=== PATIENT | female | born 1995 | race Caucasian/White ===

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

== ENCOUNTER 2017-01-03 06:53 | Emergency (ER) | payer MEDICAID ==
[2017-01-03] MEDS ORDERED: ASPIRIN 81 MG TAB.CHEW ONE (07:13)
[2017-01-03] MEDS: ASPIRIN 81 MG TAB.CHEW PO ONE (07:16)
[2017-01-03 07:31] LABS: Hematocrit 35.4 % (37.0-47.0); Mean Cell Volume 87.8 fl (78-100); Mean Corpuscular Hemoglobin 29.8 pg (27-31); Mean Corpuscular Hgb Conc 33.9 g/dl (32-36); Neutrophil # 8.1 K/mm3 (1.3-6.0); Neutrophil % 66.1 % (42-75.0); Platelet Count 310 K/mm3 (150-450); Red Blood Count 4.03 M/mm3 (4.2-5.4); Red Cell Distribution Width 13.1 % (11.5-14.0); White Blood Count 12.3 K/mm3 (4.0-10.5)
--- NOTE | 2017-01-03 07:43 | ERNOTE ---
<Shreyas Willson - Last Filed: 01/03/17 08:10> Chest Pain/Cardiac HPI Date of Service: 01/03/17 Chief Complaint: Chest Pain Time Seen by Provider: 01/03/17 07:41 Source: patient, family Immunizations: IMMUNIZATION HX Immunizations Up to Date Yes History of Influenza Vaccine Yes Hx Pneumococcal Vaccination No Allergies/Adverse Reactions: Allergies No Known Allergies Allergy (Verified 12/14/16 23:19) Home Medications: HOME MEDICATIONS Etonogestrel [Nexplanon] 68 mg SQ DAILY 07/11/15 [Last Taken Unknown] Ibuprofen [Motrin] 600 mg PO Q6H PRN #40 tab 01/01/16 [Last Taken Unknown] Pantoprazole Sodium [Protonix] 40 mg PO DAILY #30 tab 12/15/16 [Last Taken Unknown] Hydrocodone-Acetamin 2.5-108/5 01/03/17 [Last Taken Unknown] Sucralfate [Carafate] 1 gm PO TID PRN #30 tab 01/03/17 [Last Taken Unknown] Narrative: PT C/O OF HAVING "10/10 SUBSTERNAL SHARP CHEST PAIN GOING UP TO HER RIGHT SHOULDER AND ARM , STARTING AT -0600 WHILE SHE WAS LAYING IN BED. SHE WAS SEEN 2-3 WEEKS AGO WITH CHEST PAIN ALSO. SHE SAYS SHE HAD BEEN AWAKE BECAUSE OF TOOTH ACHE FOR WHICH SHE TOOK SOME VICODIN AT ABOUT 0500. SHE DENIES VICODIN EVER CAUSING HER SIDE EFFECT LIKE THIS. SHE SAYS SHE IS USUALLY ON DAILY PRILOSEC BUT DID NOT TAKE ANY THIS A.M. NO HX OF CHEST TRAUMA. NO DIAPHORESIS BUT CLAIMS SHE HAD SOME SOB AND STILL HAS 9-10/10 CHEST PAIN. HER FATHER SAYS THERE IS A PATERNAL FHX OF CAD. Review of Systems - Review of Systems Constitutional: Present: See HPI Respiratory: Present: See HPI, shortness of breath Cardiology: Present: See HPI, chest pain Gastrointestinal/Abdominal: Present: no symptoms reported Musculoskeletal: Present: no symptoms reported Skin: Present: no symptoms reported Neurological: Present: no symptoms reported Psych: Present: no symptoms reported All Other Systems: All systems neg except as marked - Patient's Past Medical History Patient History - Medical: GERD, Obesity, UTI'S Patient History - Cardiac/Respiratory: No pertinent hx Patient History - Cancer: No Hx of Cancer Patient History - Surgical Procedures: T & A Patient History - Other: None LMP (females 10-50): last week LMP (Calendar): 11/30/16 - Family History mom Family History - Medical: History Unknown, Diabetes Type 2, GERD, Other Family History - Cardiac/Respiratory: Hypertension Family History - Cancer: No pertinent family hx dad Family History - Medical: Diabetes Type 2 Family History - Cardiac/Respiratory: Hypertension - Social History Living Situations: parents Abuse History: No History of abuse Psych History: Hx of Anxiety, Hx of Depression Does anyone smoke in the home?: No Smoking Status: Never smoker Have you smoked in the past 12 months: No Alcohol Use: none Drug Use: none - Immunizations Immunizations Up to Date: Yes Hx Pneumococcal Vaccination: No History of Influenza Vaccine: Yes Physical Exam - Physical Exam General Appearance: Present: wd/wn, alert, mild distress, other - LARGE OBESE YOUNG LADY , A & O Respiratory: Present: no respiratory distress, normal breath sounds, no accessory muscle use, lungs clear, chest tenderness - MILD SUBSTERNAL CHEST DISCOMFORT TO PALPATION. Cardiovascular/Chest: Present: regular rate, rhythm, no murmur, normal peripheral pulses Peripheral Pulses: N=norm/S=strong/W=weak/B=bound/A=absent: Dorsalis-pedis (R): Normal, Dorsalis-pedis (L): Normal Extremity Exam: Present: normal inspection, no edema Skin Exam: Present: normal color, warm/dry ED Progress - Vital Signs Vital Signs: Vital Signs 01/03/17 06:56 Temperature 36.6 C Pulse Rate 110 H Respiratory 18 Rate Blood Pressure 117/83 O2 Sat by Pulse 99 Oximetry - Progress/Reassessment Chief Complaint: Chest Pain - Transfer of Care Physician Sign Out: Shreyas Willson Receiving Physician: Salvador Mann Pending Results: Labs, Pain-control Expected Disposition: Discharge Departure - Departure Clinical Impression: Chest pain in adult, Chest pain, atypical Disposition: Home self-care Condition: Stable Additional Instructions: rest. Follow-up with doctor in 3 days for a re-check. Carafate has been given at your request. Return for return of symptoms, fever, if you change your mind about the additional testing we discussed or if your condition worsens or changes in any way. Prescriptions: Sucralfate [Carafate] 1 gm PO TID PRN #30 tab PRN Reason: Indigestion <Salvador Mann - Last Filed: 01/03/17 08:52> Chest Pain/Cardiac HPI Immunizations: IMMUNIZATION HX Immunizations Up to Date Yes History of Influenza Vaccine Yes Hx Pneumococcal Vaccination No ED Progress - Vital Signs Vital Signs: Vital Signs 01/03/17 01/03/17 01/03/17 06:56 08:22 08:23 Temperature 36.6 C Pulse Rate 110 H 74 72 Respiratory 18 17 Rate Blood Pressure 117/83 115/72 O2 Sat by Pulse 99 99 Oximetry - Progress/Reassessment Progress Note-Subjective: 01/03/17 08:50 I took over from Dr Willson at shift change. Awaiting labs reviwed. Nothign to suggest PE, aortic dissection with d-dimer in normal range no CT indicated. I offered her a 4 hour repeat troponin, she declines this. She understands risks and benefits. She relates being Sx rfee at this time. Nothing to suggest PTX or ACS. Family requests carafate which i will give them a script for. Please see Dr Willson's note for full H&P.
[2017-01-03 07:46] LABS: INR 1.03 INR (0.90-1.10); Partial Thrombolplastin Time 25.5 Seconds (24-32); Prothrombin Time (Patient) 10.7 Seconds (9.4-11.4)
[2017-01-03 07:57] LABS: ALT 19 U/L (19-67); AST 14 U/L (0-48); Albumin * 3.6 gm/dl (3.4-5.0); Alkaline Phosphatase * 57 U/L (50-170); Anion Gap 14.6 mmol/L (6.8-13.8); Bilirubin, Total 0.5 mg/dL (0.0-1.1); Blood Urea Nitrogen 20 mg/dL (3-23); Ca. Corrected For Albumin 8.8 mg/dL (8.4-10.2); Calcium * 8.8 mg/dL (7.9-10.9); Carbon Dioxide 22.7 mmol/L (24-32.6); Chloride 106 mmol/L (97-106); Glucose * 112 mg/dL (70-110); Potassium 3.3 mmol/L (3.4-4.6); Sodium 140 mmol/L (132-142); Total Protein 7.9 gm/dL (6.2-8.2); Troponin I Less than 0.017 ng/ml (0.00-0.10)
[2017-01-03] MEDS ORDERED: PANTOPRAZOLE SODIUM 40 MG TABLET.EC ONE (08:04)
[2017-01-03] MEDS: LIDOCAINE HCL 20 ML UDC PO ONE (08:06)
[2017-01-03] MEDS: MAG HYDROX/ALUMINUM HYD/SIMETH 30 ML UDC PO ONE (08:06)
[2017-01-03] MEDS: PANTOPRAZOLE SODIUM 40 MG TABLET.EC PO ONE (08:06)
[2017-01-03 08:23] VITALS: BP 115/72
--- OUTSIDE RECORDS SUMMARY | 2017-01-03 09:03 | XMS REPORT | Continuity of Care Document ---
:1995 Author Organization [employer] Address Unavailable [place] [id number] Care Team Providers Name Role Phone Unavailable Primary Care Provider Unavailable Source Comments This disclosure is being made pursuant to the [employer] program and maynot contain all information available regarding this patient.[employer] Active Allergies and Adverse Reactions Not on [...]
== END 2017-01-03 09:00 | disposition home or self-care (01) ==
LOC: ER 06:53
DX: R07.89 Other chest pain (principal)

== ENCOUNTER 2017-08-09 17:30 | Emergency (ER) | payer SELFPAY ==
[2017-08-09] MEDS ORDERED: predniSONE 20 MG TABLET PO ONE (17:48)
--- NOTE | 2017-08-09 17:50 | ERNOTE ---
ENT HPI Presenting Symptoms: other - sore throat Time Seen by Provider: 08/09/17 17:42 Source: patient Exam Limitations: no limitations - Immun/Allergies/Home Medications Immunizations: IMMUNIZATION HX Immunizations Up to Date Yes History of Influenza Vaccine No Hx Pneumococcal Vaccination No Allergies/Adverse Reactions: Allergies Allergy/AdvReac Type Severity Reaction Status Date / Time No Known Allergies Allergy Verified 12/14/16 23:19 Home Medications: HOME MEDICATIONS Ibuprofen [Motrin] 600 mg PO Q6H PRN #40 tab 01/01/16 [Last Taken Unknown] Amoxicillin 875 mg PO BID #20 tablet 08/09/17 [Last Taken Unknown] - History of Present Illness Narrative: Patient states that she developed a sore throat 2 days ago this getting mildly progressively worse and she reports some difficulty with swallowing. Severity: Present: mild ENT Location: Present: throat Prearrival Treatment: Present: no prearrival treatment Modifying Factors - Improves: Reports: nothing Modifying Factors - Worsens: Reports: nothing Associated Symptoms - ENT: Reports: denies symptoms Review of Systems - Review of Systems Constitutional: Present: See HPI EYE: Present: no symptoms reported ENT: Present: sore throat Respiratory: Present: no symptoms reported Cardiology: Present: no symptoms reported Gastrointestinal/Abdominal: Present: no symptoms reported Genitourinary: Present: no symptoms reported Musculoskeletal: Present: no symptoms reported Skin: Present: no symptoms reported Neurological: Present: no symptoms reported Endocrine: Present: no symptoms reported Hematologic/Lymphatic: Present: no symptoms reported Psych: Present: no symptoms reported - Patient's Past Medical History Patient History - Medical: GERD, Obesity, UTI'S Patient History - Cardiac/Respiratory: No pertinent hx Patient History - Cancer: No Hx of Cancer Patient History - Surgical Procedures: T & A Patient History - Other: None LMP (females 10-50): last week - Family History mom Family History - Medical: History Unknown, Diabetes Type 2, GERD, Other Family History - Cardiac/Respiratory: Hypertension Family History - Cancer: No pertinent family hx dad Family History - Medical: Diabetes Type 2 Family History - Cardiac/Respiratory: Hypertension - Social History Living Situations: alone Abuse History: No History of abuse Psych History: Hx of Anxiety, Hx of Depression Smoking Status: Never smoker Have you smoked in the past 12 months: No Do you dip or chew tobacco: No Alcohol Use: heavy Drug Use: none - Immunizations Immunizations Up to Date: Yes Hx Pneumococcal Vaccination: No History of Influenza Vaccine: No Physical Exam - Physical Exam General Appearance: Present: wd/wn, alert, mild distress Head Exam: Present: normal inspection, no evidence of injury Eye Exam: Normal inspection: bilateral, PERRL: bilateral Ears, Nose, Throat: Present: pharyngeal erythema Neck: Present: normal inspection, nontender Respiratory: Present: no respiratory distress, normal breath sounds, no accessory muscle use, chest nontender, lungs clear Cardiovascular/Chest: Present: regular rate, rhythm, no murmur, normal peripheral pulses Gastrointestinal/Abdominal: Present: normal bowel sounds, nontender, nondistended, soft, no organomegaly Rectal Exam: Present: deferred Back Exam: Present: normal inspection, normal range of motion Extremity Exam: Present: normal inspection, non-tender, no edema, normal range of motion Neurological Exam: Present: alert, oriented, normal mood/affect Skin Exam: Present: normal color, warm/dry Lymphatic Exam: Present: other - anterior cervical lymph nodes ED Progress - Results and Orders Patient's Lab Results:: I have reviewed the patient's lab results. - Vital Signs Patient's Vital Signs:: I have reviewed the patient's vital signs. Vital Signs: Vital Signs 08/09/17 17:35 Temperature 36.7 C Pulse Rate 88 Respiratory 16 Rate Blood Pressure 124/64 O2 Sat by Pulse 98 Oximetry - Progress/Reassessment Chief Complaint: Sore Throat Plan - Plan Plan: Patient be started on amoxicillin she agrees to follow-up with her family physician in a week to 10 days Departure Clinical Impression: Pharyngitis Qualifiers: Pharyngitis/tonsillitis etiology: other specified organisms Qualified Code(s): J02.8 - Acute pharyngitis due to other specified organisms - Departure Disposition: Home self-care Condition: Good Instructions: Sore Throat, [id number] Prescriptions: Amoxicillin 875 mg PO BID #20 tablet
[2017-08-09] MEDS ORDERED: predniSONE 20 MG TABLET ONE (17:52)
[2017-08-09] MEDS ORDERED: AMOXICILLIN TRIHYDRATE 250 MG CAPSULE PO ONE (18:07)
[2017-08-09] MEDS ORDERED: AMOXICILLIN TRIHYDRATE 250 MG CAPSULE ONE (18:08)
[2017-08-09 18:55] VITALS: BP 119/70
== END 2017-08-09 18:25 | disposition home or self-care (01) ==
LOC: ER 17:30
DX: J02.8 Acute pharyngitis due to other specified organisms (principal)

== ENCOUNTER 2021-02-13 10:15 | Observation (INO) ==
[2021-02-13] MEDS ORDERED: KETOROLAC TROMETHAMINE 30 MG/ML VIAL IV ONE (11:07)
[2021-02-13] MEDS ORDERED: ONDANSETRON HCL/PF 2 MG/ML VIAL IV ONE (11:07)
[2021-02-13] MEDS ORDERED: NORMAL SALINE 1,000 ML IV ONE (11:07)
--- NOTE | 2021-02-13 11:08 | ERNOTE ---
Abdominal HPI - Narrative Date of Service: 02/13/21 - General Chief Complaint: Abdominal Pain Time Seen by Provider: 02/13/21 10:55 Source: patient, RN notes reviewed Exam Limitations: no limitations - Immun/Allergies/Home Medications Immunizatons: IMMUNIZATION HX Immunizations Up to Date Yes History of Influenza Vaccine Yes Hx Pneumococcal Vaccination No Allergies/Adverse Reactions: Allergies No Known Allergies Allergy (Verified 10/17/19 16:49) Home Medications: HOME MEDICATIONS NK 05/12/20 [Last Taken Unknown] - History of Present Illness Narrative: Jessica is a 25-year-old female who presents to the emergency department for abdominal pain. She began having left lower quadrant pain 6 days ago. She had one episode of vomiting 5 days ago and had diarrhea this morning. Her pain has been gradually worsening and is still the most severe in the left lower quadrant but radiates across her lower abdomen. Her LMP was 02/06/2021. She has been taking Tylenol and Gas-X without improvement. She reports feeling bloated in her upper abdomen. She saw her PCP yesterday. Lab work was done and she was told that it was normal. Her provider wanted to order a CT scan but has to wait for a prior Auth. She denies any urinary symptoms. She has no prior history of abdominal surgeries. She takes Dexilant for heartburn but otherwise is on no routine medications. Date (Duration): 02/07/21 Timing: constant, getting worse Quality: severe, aching Activities at Onset: none Modifying Factors - (Improves): Absent: analgesics, defecating, eating, rest Modifying Factors - (Worsens): Present: eating, movement Associated Symptoms: Present: back pain, loss of appetite. Absent: chest pain, fever/chills, shortness of breath Prior Abdominal Problems: Present: none Review of Systems - Review of Systems Constitutional: Absent: recent illness, fever, chills EYE: Present: no symptoms reported ENT: Present: no symptoms reported Respiratory: Absent: shortness of breath, cough Cardiology: Absent: chest pain, syncope Gastrointestinal/Abdominal: Present: See HPI, eating less, drinking less. Absent: constipation Genitourinary: Absent: frequency, dysuria, hematuria Musculoskeletal: Present: back pain. Absent: neck pain, joint pain Skin: Absent: rash, lesions Neurological: Absent: headache, dizziness/light-headedness Endocrine: Present: no symptoms reported Hematologic/Lymphatic: Absent: easy bruising, easy bleeding Psych: Present: no symptoms reported Medical History (Last Reviewed 02/13/21 @ 12:21 by Rajni Roth NP) History of pelvic fracture Surgical History: Surgical History (Last Reviewed 02/13/21 @ 12:21 by Rajni Roth NP) No history of previous surgery [place] teeth removed Family History: Family History (Last Reviewed 02/13/21 @ 12:21 by Rajni Roth NP) Father Diabetes Mother Lupus at age 34 Social History: (Last Reviewed 02/13/21 @ 12:21 by Rajni Roth NP) Tobacco: Smoking Status: Never smoker Alcohol: alcohol intake: former Substance Use: substance use type: does not use Personal Safety: do you feel safe at home: Yes victim of physical abuse: No victim of emotional abuse: No victim of sexual abuse: No Physical Exam - Physical Exam General Appearance: Present: wd/wn, alert, mild distress, obese Head Exam: Present: normal inspection Eye Exam: Normal inspection: bilateral Neck: Present: normal inspection, nontender, supple Respiratory: Present: no respiratory distress, normal breath sounds, no accessory muscle use, lungs clear Cardiovascular/Chest: Present: regular rate, rhythm, no murmur, normal peripheral pulses Gastrointestinal/Abdominal: Present: normal bowel sounds, soft, tenderness - moderate in RLQ and suprapubic region, severe in LLQ, distended - obese, guarding - LLQ Back Exam: Present: normal range of motion, no vertebral tenderness, CVA tenderness (L). Absent: CVA tenderness (R) Extremity Exam: Present: normal inspection, normal range of motion Neurological Exam: Present: alert, oriented, normal mood/affect, no motor/sensory deficits Skin Exam: Present: normal color, warm/dry Progress - Results and Orders Patient's Lab Results:: I have reviewed the patient's lab results. - Vital Signs Patient's Vital Signs:: I have reviewed the patient's vital signs. Vital Signs: Vital Signs 02/13/21 10:44 Temperature 36.8 C Pulse Rate 73 Respiratory Rate 12 Blood Pressure 150/103 H O2 Sat by Pulse Oximetry 98 - Progress/Reassessment Chief Complaint: Abdominal Pain Progress:: Improved Plan - Plan Plan: The patient reports improvement in her pain after IV meds and fluids but has vomited after she was given Zofran. Her UA shows luekocyte estrase and WBC's. Given the location of her pain, this is consistent with pyelonephritis. Aside from mild stool retention on her xray, her work-up is other bashir unremarkable. Due to her vomiting and inability to tolerate oral intake, she needs IV antibiotics. I contacted Dr. Bryant and the patient will be admitted to observation on Med/Surg. IV Cipro initiated in the ED. Departure Clinical Impression: Pyelonephritis, Vomiting - Departure Disposition: Still a patient Condition: Stable Referrals: Carlie Moore, PAC [Primary Care Provider] -
[2021-02-13 11:26] LABS: Hematocrit 38.1 % (37.0-47.0); Hemoglobin 12.2 gm/dL (12.5-16.0); Mean Cell Volume 84.7 fl (78-100); Mean Corpuscular Hemoglobin 27.1 pg (27-31); Mean Platelet Volume 10.6 fl (8-12.5); Neutrophil # 4.6 K/mm3 (1.3-6.0); Neutrophil % 69.4 % (42-75.0); Platelet Count 351 K/mm3 (150-450); Red Cell Distribution Width 14.6 % (11.5-14.0); White Blood Count 6.7 K/mm3 (4.0-10.5)
[2021-02-13 11:39] LABS: Albumin * 3.6 gm/dl (3.4-5.0); Anion Gap 14.2 mmol/L (6.8-13.8); Bilirubin, Total 0.3 mg/dL (0.0-1.1); CRP 2.8 mg/dL (0.0-0.9); Ca. Corrected For Albumin 8.7 mg/dL (8.4-10.2); Calcium * 8.7 mg/dL (7.9-10.9); Carbon Dioxide 23.8 mmol/L (24-32.6); Total Protein 8.2 gm/dL (6.2-8.2)
[2021-02-13 11:56] LABS: Urine Bilirubin Negative (NEGATIVE); Urine Blood Negative /ul (NEGATIVE); Urine Ketone Negative (NEGATIVE); Urine Nitrite Negative (NEGATIVE); Urine Protein Negative (NEGATIVE); Urine Urobilinogen Normal (NORMAL)
[2021-02-13 12:02] LABS: Urine Appearance Clear (CLEAR); Urine Bacteria TRACE; Urine Color Yellow; Urine RBC None Seen /hpf (0-5)
[2021-02-13] MEDS ORDERED: HYDROmorphone HCL 1 MG/ML DISP.SYRIN IV ONE (12:25)
[2021-02-13] MEDS ORDERED: CIPROFLOXACIN IN 5 % DEXTROSE 400 MG/200 ML BAG IV SCH (14:00)
[2021-02-13] MEDS: NORMAL SALINE 1,000 ML IV PRN ×2 (14:02→19:24)
[2021-02-13] MEDS ORDERED: MORPHINE SULFATE 2 MG/ML DISP.SYRIN IV ONE (15:48)
[2021-02-13] MEDS ORDERED: PROCHLORPERAZINE EDISYLATE 5 MG/ML VIAL IV ONE (15:48)
[2021-02-13] MEDS ORDERED: ACETAMINOPHEN 1,000 MG/100 ML BTL IV ONE (17:42)
--- NOTE | 2021-02-13 17:55 | HP ---
Chief Complaint - Chief Complaint Date of Service: 02/13/21 Time of Service: 16:40 Chief Complaint: abdominal pain, vomiting History of Present Illness: Patient with no PMHx presents to the ED after almost a week of left sided abdominal pain. She initially thought it may have been menstrual cramps, but it persisted and worsened. She started vomiting yesterday and saw her PCP, who started pre-auth process for a CT of her abdomen and pelvis. She felt hot and cold simultaneously yesterday, but did not take her temp. Has not had this before. Tried OTC meds without relief. Was having regular stools, and was told to add a stool softener, and had some diarrhea this morning. No dysuria, but feels like she's urinating more frequently than normal. Denies cough, SOB. In the ED, WBC was normal, procalcitonin not elevated at less than 0.05, negative HCG, negative COVID. Abdominal xray showed obesity, but no acute pathology. UA was positive for leukocyte esterase, but negative for nitrates or blood, and only trace bacteria. Her pain has been difficult to control, and her vomiting continues. She is admitted for possible pyelonephritis and symptom management. Medical History (Last Reviewed 02/13/21 @ 17:05 by Jyoti Chávez RN) History of pelvic fracture Surgical History: Surgical History (Last Reviewed 02/13/21 @ 17:05 by Jyoti Chávez RN) No history of previous surgery [place] teeth removed Family History: Family History (Last Reviewed 02/13/21 @ 17:05 by Jyoti Chávez RN) Father Diabetes Mother Lupus at age 34 Social History: (Last Reviewed 02/13/21 @ 17:05 by Jyoti Chávez RN) Tobacco: Smoking Status: Never smoker Alcohol: alcohol intake: former Substance Use: substance use type: does not use Personal Safety: do you feel safe at home: Yes victim of physical abuse: No victim of emotional abuse: No victim of sexual abuse: No Review Of Systems (GEN) - Review of Systems Generalized/Overall Review: Present: Chills Respiratory: Absent: Shortness of Breath Cardiac: Absent: Chest Pain Abdominal: Present: Nausea, Vomiting, Abdominal Pain. Absent: Constipation, Bright blood from rectum Genitourinary: Present: Frequency. Absent: Dysuria Skin: Present: No Symptoms Reported Immunizations: IMMUNIZATION HX Immunizations Up to Date Yes History of Influenza Vaccine Yes Hx Pneumococcal Vaccination No Allergies/Adverse Reactions: Allergies Allergy/AdvReac Type Severity Reaction Status Date / Time No Known Allergies Allergy Verified 10/17/19 16:49 Home Medications: HOME MEDICATIONS Dexlansoprazole [Dexilant] 60 mg PO DAILY 02/13/21 [Last Taken 02/12/21 07:00] Exam - Exam Vital Signs: Vital Signs - Last Taken Temp 36.2 C 02/13/21 17:10 Pulse 60 02/13/21 17:10 Resp 18 02/13/21 17:10 BP 107/62 02/13/21 17:10 Pulse Ox 97 02/13/21 17:10 Constitutional: Present: Alert, Other - appears uncomfortable, Morbidly obese Respiratory: Present: lungs clear, no accessory muscle use Cardiovascular/Chest: Present: regular rate, rhythm Abdomen: Present: obese, tender - LUQ, LLQ Extremity: Absent: lower extremity edema Eye contact: Present: cooperative, good eye contact Diagnostic Studies: Abnormal Lab Results 02/13/21 02/13/21 02/13/21 Range/Units 11:20 11:20 11:20 Hgb 12.2 L (12.5-16.0) gm/dL RDW 14.6 H (11.5-14.0) % Lymphocytes # 1.35 L (1.5-3.5) k/mm3 Carbon Dioxide 23.8 L (24-32.6) mmol/L Anion Gap 14.2 H (6.8-13.8) mmol/L C-Reactive Prot, Quant 2.8 H (0.0-0.9) mg/dL Lipase 49 L (73-393) U/L Procalcitonin Less than 0.05 L (0.05-0.50) ng/mL Ur Leukocyte Esterase (NEGATIVE) /ul Urine WBC (0-5) /hpf 02/13/21 Range/Units 11:30 Hgb (12.5-16.0) gm/dL RDW (11.5-14.0) % Lymphocytes # (1.5-3.5) k/mm3 Carbon Dioxide (24-32.6) mmol/L Anion Gap (6.8-13.8) mmol/L C-Reactive Prot, Quant (0.0-0.9) mg/dL Lipase (73-393) U/L Procalcitonin (0.05-0.50) ng/mL Ur Leukocyte Esterase 75 H (NEGATIVE) /ul Urine WBC 5-10 H (0-5) /hpf Laboratory Results WBC 6.7 K/mm3 (4.0-10.5) 02/13/21 11:20 RBC 4.50 M/mm3 (4.2-5.4) 02/13/21 11:20 Hgb 12.2 gm/dL (12.5-16.0) L 02/13/21 11:20 Hct 38.1 % (37.0-47.0) 02/13/21 11:20 MCV 84.7 fl (78-100) 02/13/21 11:20 MCH 27.1 pg (27-31) 02/13/21 11:20 MCHC 32.0 g/dl (32-36) 02/13/21 11:20 RDW 14.6 % (11.5-14.0) H 02/13/21 11:20 Plt Count 351 K/mm3 (150-450) 02/13/21 11:20 MPV 10.6 fl (8-12.5) 02/13/21 11:20 Immature Gran % (Auto) 0.40 % (0.001-0.429) 02/13/21 11:20 Immature Gran # (Auto) 0.03 K/mm3 (0.000-0.0310) 02/13/21 11:20 Neutrophils % 69.4 % (42-75.0) 02/13/21 11:20 Lymphocytes % 20.2 % (20-51) 02/13/21 11:20 Monocytes % 6.6 % (0.0-9) 02/13/21 11:20 Eosinophils % 2.8 % (0.0-3.0) 02/13/21 11:20 Basophils % 0.6 % (0.0-1.0) 02/13/21 11:20 Nucleated RBC % 0.0 k/mm3 (0-1) 02/13/21 11:20 Neutrophils # 4.6 K/mm3 (1.3-6.0) 02/13/21 11:20 Lymphocytes # 1.35 k/mm3 (1.5-3.5) L 02/13/21 11:20 Monocytes # 0.4 k/mm3 (0.0-1.0) 02/13/21 11:20 Eosinophils # 0.2 k/mm3 (0.0-0.7) 02/13/21 11:20 Absolute Basophils 0.0 k/mm3 (0.0-0.1) 02/13/21 11:20 Sodium 139 mmol/L (132-142) 02/13/21 11:20 Plasma Sodium 139 mmol/L (130-142) 02/13/21 11:20 Potassium 4.0 mmol/L (3.4-4.6) 02/13/21 11:20 Chloride 105 mmol/L (97-106) 02/13/21 11:20 Carbon Dioxide 23.8 mmol/L (24-32.6) L 02/13/21 11:20 Anion Gap 14.2 mmol/L (6.8-13.8) H 02/13/21 11:20 BUN 13 mg/dL (3-23) 02/13/21 11:20 Creatinine 0.65 mg/dL (0.4-1.4) 02/13/21 11:20 Est GFR (Non-Af Amer) 120 mL/min (60-130) D 02/13/21 11:20 BUN/Creatinine Ratio 20.0 (9.0-21.6) 02/13/21 11:20 Random Glucose 95 mg/dL (70-110) 02/13/21 11:20 Lactic Acid, Venous 0.9 mmol/L (0.4-2.0) 02/13/21 11:20 Calcium 8.7 mg/dL (7.9-10.9) 02/13/21 11:20 Calcium Adj for Albumin 8.7 mg/dL (8.4-10.2) 02/13/21 11:20 Total Bilirubin 0.3 mg/dL (0.0-1.1) 02/13/21 11:20 AST 14 U/L (0-48) 02/13/21 11:20 ALT 28 U/L (19-67) 02/13/21 11:20 Alkaline Phosphatase 71 U/L (50-170) 02/13/21 11:20 C-Reactive Prot, Quant 2.8 mg/dL (0.0-0.9) H 02/13/21 11:20 Total Protein 8.2 gm/dL (6.2-8.2) 02/13/21 11:20 Albumin 3.6 gm/dl (3.4-5.0) 02/13/21 11:20 Lipase 49 U/L (73-393) L 02/13/21 11:20 Procalcitonin Less than 0.05 ng/mL (0.05-0.50) L 02/13/21 11:20 Serum HCG, Qual Negative (NEGATIVE) 02/13/21 11:20 Urine Color Yellow 02/13/21 11:30 Urine Appearance Clear (CLEAR) 02/13/21 11:30 Urine pH 7.0 pH (5.0-7.0) 02/13/21 11:30 Ur Specific [place] 1.020 SP.GR. (1.005-1.010) 02/13/21 11:30 Urine Protein Negative mg/dL (NEGATIVE) 02/13/21 11:30 Urine Glucose (UA) Negative mg/dL (NEGATIVE) 02/13/21 11:30 Urine Ketones Negative mg/dL (NEGATIVE) 02/13/21 11:30 Urine Blood Negative /ul (NEGATIVE) 02/13/21 11:30 Urine Nitrate Negative (NEGATIVE) 02/13/21 11:30 Urine Bilirubin Negative mg/dl (NEGATIVE) 02/13/21 11:30 Urine Urobilinogen Normal EU/dl (NORMAL) 02/13/21 11:30 Ur Leukocyte Esterase 75 /ul (NEGATIVE) H 02/13/21 11:30 Urine RBC None seen /hpf (0-5) 02/13/21 11:30 Urine WBC 5-10 /hpf (0-5) H 02/13/21 11:30 Ur Epithelial Cells 0-5 /hpf (0-5) 02/13/21 11:30 Urine Bacteria Trace (NONE) 02/13/21 11:30 Urine Culture Comments Culture to follow 02/13/21 11:30 SARS-CoV-2 (PCR) Not detected (NotDetected) 02/13/21 14:08 Assessment/Plan - Narrative Narrative: Ddx includes pyelonephritis, UTI gastritis, renal stone, IBS, colitis. With her pain, increased urinary frequency, fever, and positive leukocyte esterase, will treat for UTI with cipro. Procalcitonin was not elevated, and she only had a trace bacteria in urine, making pyelonephritis less likely. Dilaudid made her more nauseated, so will try to treat her pain with IV tylenol. She also was more nauseated after zofran, so will treat nausea with IV phenergan. Clear liquid diet ordered by the ED, but after arriving to the floor, she threatened to leave AMA if she did not get a regular diet. This indicates her nausea and pain must be improving. Of note, our CT scanner was nonoperative while she was in the ED. Should she worsen, will obtain CT abd/pel with contrast. - Assessment/Plan (1) Abdominal pain Problem: Acute Qualifiers: Abdominal location: left lower quadrant Qualified Code(s): R10.32 - Left lower quadrant pain (2) Acute UTI Assessment: Urine culture pending. Problem: Suspected
[2021-02-13] MEDS ORDERED: PROMETHAZINE HCL 25 MG TABLET PO PRN (18:05)
[2021-02-13] MEDS ORDERED: MELATONIN 3,000 MCG TABLET PO PRN (18:58)
[2021-02-13] MEDS ORDERED: hydrOXYzine HCL 25 MG TABLET PO PRN (19:00)
[2021-02-14] MEDS ORDERED: ACETAMINOPHEN 325 MG TABLET PO PRN (00:01)
[2021-02-14] MEDS: NORMAL SALINE 1,000 ML IV PRN ×2 (00:32→06:35)
[2021-02-14] MEDS ORDERED: CIPROFLOXACIN IN 5 % DEXTROSE 400 MG/200 ML BAG IV SCH (02:00)
[2021-02-14] MEDS ORDERED: PANTOPRAZOLE SODIUM 40 MG TABLET.EC PO SCH (07:00)
--- NOTE | 2021-02-14 08:49 | DS ---
(1) Abdominal pain Problem: Acute Qualifiers: Abdominal location: left lower quadrant Qualified Code(s): R10.32 - Left lower quadrant pain (2) Colitis Problem: Suspected (3) Acute UTI Problem: Suspected Date of Discharge:: 02/14/21 Hospital Course: Patient with no PMHx presents to the ED after almost a week of left sided abdominal pain. She initially thought it may have been menstrual cramps, but it persisted and worsened. She started vomiting the day prior to admission and saw her PCP, who started pre-auth process for a CT of her abdomen and pelvis. She felt hot and cold simultaneously, but did not take her temp. Tried OTC meds without relief. Was having regular stools, and was told to add a stool softener, and had some diarrhea the morning of admission. No dysuria, but feels like she's urinating more frequently than normal. Denies cough, SOB. In the ED, WBC was normal, procalcitonin not elevated at less than 0.05, negative HCG, negative COVID. Abdominal xray showed obesity, but no acute pathology. UA was positive for leukocyte esterase, but negative for nitrates or blood, and only trace bacteria. Urine culture shows no growth thus far. Her pain was difficult to control, and her vomiting continued, so she was admitted for possible pyelonephritis and symptom management. Unfortunately, the CT scanner was nonoperative during her stay. After arriving to the floor, she told nursing staff that if she did not get a regular diet, she would leave AMA. She was able to tolerate biscuits and gravy in the morning. Her pain was controlled with tylenol. Her presentation may have been due to colitis. It was recommended to follow a lower fat diet while she recovers. She felt comfortable going home on the morning of discharge after a one night stay. 35 minutes spent on discharge examining patient, writing DC note, and placing orders. Procedures Performed: none Results and Findings: Pending Mircobiology Results 02/13/21 11:30 Urine,Voided Urine Culture - Preliminary No Growth Lab Pending Results 02/13/21 11:20: WBC 6.7, RBC 4.50, Hgb 12.2 L, Hct 38.1, MCV 84.7, MCH 27.1, MCHC 32.0, RDW 14.6 H, Plt Count 351, MPV 10.6, Immature Gran % (Auto) 0.40, Immature Gran # (Auto) 0.03, Neutrophils % 69.4, Lymphocytes % 20.2, Monocytes % 6.6, Eosinophils % 2.8, Basophils % 0.6, Nucleated RBC % 0.0, Neutrophils # 4.6, Lymphocytes # 1.35 L, Monocytes # 0.4, Eosinophils # 0.2, Absolute Basophils 0.0 02/13/21 11:20: Sodium 139, Plasma Sodium 139, Potassium 4.0, Chloride 105, Carbon Dioxide 23.8 L, Anion Gap 14.2 H, BUN 13, Creatinine 0.65, Est GFR (Non-A f Amer) 120 D, BUN/Creatinine Ratio 20.0, Random Glucose 95, Calcium 8.7, Calcium Adj for Albumin 8.7, Total Bilirubin 0.3, AST 14, ALT 28, Alkaline Phosphatase 71, C-Reactive Prot, Quant 2.8 H, Total Protein 8.2, Albumin 3.6, Lipase 49 L 02/13/21 11:20: Lactic Acid, Venous 0.9 02/13/21 11:20: Serum HCG, Qual Negative 02/13/21 11:20: Procalcitonin Less than 0.05 L 02/13/21 11:30: Urine Color Yellow, Urine Appearance Clear, Urine pH 7.0, Ur Specific [place] 1.020, Urine Protein Negative, Urine Glucose (UA) Negative, Urine Ketones Negative, Urine Blood Negative, Urine Nitrate Negative, Urine Bilirubin Negative, Urine Urobilinogen Normal, Ur Leukocyte Esterase 75 H, Urine RBC None seen, Urine WBC 5-10 H, Ur Epithelial Cells 0-5, Urine Bacteria Trace, Urine Culture Comments Culture to follow 02/13/21 14:08: SARS-CoV-2 (PCR) Not detected Discharge Location: Home Disposition: Home self-care Condition: Stable Discharge Activity: Activity as tolerated Discharge Diet: Low fat/chol Referrals: Cling,Carlie, PAC [Primary Care Provider] - (within one week please) Prescriptions (Any new or edited meds): Ciprofloxacin HCl [Cipro] 250 mg PO BID #4 tab Transmission Status: Pending to [facility][id number] Complete Home Medications List: Complete Home Medication List: Dexlansoprazole [Dexilant] 60 mg PO DAILY 02/13/21 Ciprofloxacin HCl [Cipro] 250 mg PO BID #4 tab 02/14/21 Forms: Patient Portal Registration
[2021-02-14 09:38] VITALS: BP 116/67
== END 2021-02-14 10:20 | disposition home or self-care (01) ==
LOC: MS 10:15 → ER 10:15 → MS 17:00
PROVIDERS: ADMIT Family Medicine; ATTEND Family Medicine
DX: R10.32 Left lower quadrant pain